=== PATIENT | female | born 1975 | race Caucasian/White ===

== ENCOUNTER 2018-03-21 07:16 | Outpatient (CLI) | payer OTHER, MEDICAID ==
[~2018-03-21] VITALS: Ht 162.6 cm; Wt 141.8 kg
--- NOTE | ~2018-03-21 | OP ---
PATIENT NAME: MING KENT MEDICAL RECORD: [id number] :71 LOCATION:D.CAT ADMISSION DATE: SURGEON: ALBIN BARAHONA MD DATE OF OPERATION: 03/21/2018 PROCEDURES: 1. PTCA stent of the left circumflex. 2. Left heart catheterization. 3. Selective coronary angiography. 4. Left ventriculogram. INDICATION: Angina and coronary artery disease. PROCEDURE IN DETAIL: After informed consent was obtained and after a detailed description of the risks, benefits as well as alternative therapies, the patient elected to proceed with angiogram and angioplasty. The right radial area was prepped and draped in normal sterile fashion. Right radial artery was cannulated via modified Seldinger technique with placement of 6-Khmer sheath. All catheters exchanged through this sheath. FINDINGS: The left ventriculogram was performed in standard 30-degree COLEMAN view, reveals good cardiac wall motion throughout all segments. Overall ejection fraction estimated 60%. SELECTIVE CORONARY ANGIOGRAPHY: 1. Left main is with no significant angiographic disease. 2. Left anterior descending has moderate irregularities, but no flow-limiting stenosis. 3. The left circumflex has 75+ percent stenosis at the ostium. 4. The right coronary artery has moderate irregularities, but no flow-limiting stenosis. PTCA STENT OF LEFT CIRCUMFLEX: The stent used was a 3.5 x 8 mm Balwinder, taken to 15 atmospheres. Result was 0% residual stenosis. OVERALL IMPRESSION: Successful percutaneous transluminal coronary angioplasty stent of the left circumflex going from 75% initial stenosis to 0% residual. TRANSINT:[id number] Voice Confirmation ID: [id number] DOCUMENT ID: [id number] ALBIN BARAHONA MD at 1713 CC: [id number] DICTATION DATE: 03/21/18 0922 MUNICIPAL SERVICES MANAGER: 03/21/18 1145 [facility] CLI 03/21/18 [place] [address]
--- NOTE | ~2018-03-21 | HEMODYNAMI ---
PATIENT:MING KENT MEDICAL RECORD: [id number] : 71 LOCATION:[facility] ADMISSION DATE: 03/21/18 Generatedon:03/21/20189:26 Patient name: MING KENT Patient #: [id number] SSN: : 1975 Date of study: 03/21/2018 Page: Of Hemodynamic Procedure Report Patient Data Patient Demographics Procedure consent was obtained First Name: MING Gender: Female Last Name: YOLI : 1975 [facility] Initial: YEIMI Age: 42 year(s) Patient #: [id number] Race: Unknown Additional ID: [id number] Contact details Address: [address] [place] [address] State: [place] City: [place] Zip code: [address] Admission Admission Data Admission Date: 03/21/2018 Admission Time: 7:16 Height (in.): 64 BSA: 2.39 (m2) Height (cm.): 162.56 BMI: 54.76 (kg/m2) Weight (lbs.): 319 Weight (kg.): 144.7 Lab Results Lab Result Date: 03/21/2018 Lab Result Time: 0:00 Biochemistry Name Units Result Min Max BUN mg/dl 10 --(-*--)-- 7 18 Creatinine mg/dl 0.8 --(-*--)-- 0.6 1.3 CBC Name Units Result Min Max Hemoglobin g/dl 13.2 -*(----)-- 13.5 17.5 Procedure Procedure Types Cath Procedure Diagnostic Procedure [facility] w/Coronaries PCI Procedure Coronary Stent Coronary Stent Initial Procedure Description Procedure Date Procedure Date: 03/21/2018 Procedure Start Time: 9:06 Procedure End Time: 9:24 Procedure Staff Name Function Efraín Torres MD Performing Physician Dennis Garcai RT Monitor Deejay Rouse RN Nurse Lance Nicole RT Scrub Procedure Data Cath Procedure Fluoroscopy Diagnostic fluoroscopy Total fluoroscopy Time: 3.4 time: 3.4 min min Diagnostic fluoroscopy Total fluoroscopy dose: dose: 1153 mGy 1153 mGy Contrast Material Contrast Material Type Amount (ml) Isovue 300 111 Entry Location Entry Primary Successful Side Size Upsize Upsize Entry Closure [place] ccessful Closure Location (Fr) 1 (Fr) 2 (Fr) Remarks Device Remarks Radial Right 6 Fr Mechanical artery Short Compression Estimated blood loss: 10 ml Diagnostic catheters Device Type Used For End Catheter Placement DIAGNOSTIC [place] 110cm 5 Procedure Fr catheter ([id number]) Procedure Complications No complications Procedure Medications Medication Administration Route Dosage 0.9% NaCl I.V. 100 ml/hr Oxygen etCO2 Nasal cannula 2 l/min Heparin Flush Bag added to field 2 bags (1000units/500ml NS) Lidocaine 2% added to field 20 Radial Cocktail added to field 1 syringe (Verapomil 2mg/Nitro 400mcg/Heparin 1500units) Versed I.V. 2 mg Fentanyl I.V. 100 mcg Radial Cocktail I.A. 1 syringe (Verapomil 2mg/Nitro 400mcg/Heparin 1500units) Versed I.V. 1 mg Versed I.V. 1 mg Heparin Bolus I.V. 4000 units Integrilin (Bolus I.V. 11.3 ml 2mg/ml) Integrilin (Bolus wasted 8.7 ml 2mg/ml) Plavix P.O. 600 mg Fentanyl I.V. 100 mcg Hemodynamics Rest BSA: 2.39 (m2) HGB: 13.2 (g/dl) O2 Consumption: Estimated: 242.75 (ml/min) O2 Co nsumption indexed: Estimated:101.57 (ml/min/m) Heart Rate: 74 (bpm) Pressure Samples Time Site Value (mmHg) Purpose Heart Use Rate(bpm) 9:10 AO 157/100(124) Snapshot 80 Snapshots Pre Cath Intra NCS Post Cath Vital Signs Time Heart Resp SPO2 etCO2 NIBP (mmHg) Rhythm Pain Sedation Rate (ipm) (%) (mmHg) Status Level (bpm) 8:48:38 68 17 98 37.7 127/69(102) NSR 0 (11) 10(A) , No pain 8:53:31 71 16 96 29.4 121/58(87) NSR 0 (11) 10(A) , No pain 8:58:22 70 17 96 38.4 125/71(100) NSR 0 (11) 10(A) , No pain 9:03:15 78 17 94 38.5 129/64(93) NSR 0 (11) 10(A) , No pain 9:08:04 77 20 97 33.1 144/88(109) NSR 0 (11) 10(A) , No pain 9:12:59 81 17 93 40 162/91(134) NSR 0 (11) 10(A) , No pain 9:19:05 75 16 96 37.7 186/106(137) NSR 0 (11) 10(A) , No pain 9:24:15 73 14 96 40.7 190/94(148) NSR 0 (11) 10(A) , No pain Medications Time Medication Route Dose Verified Delivered Reason Note s Effectiveness by by 8:50:48 0.9% NaCl I.V. 100 Deejay Deejay Per physician ml/hr Nasim Rouse RN RN 8:51:05 Oxygen etCO2 2 l/min Deejay Deejay Per physician Nasal Nasim Rouse cannula RN RN 8:51:20 Heparin Flush added 2 bags Deejay Deejay used for Bag to Lorigan Nasim procedure (1000units/500ml field RN RN NS) 8:51:32 Lidocaine 2% added 20ml Deejay Deejay for local to vial Lorigan Lorigan anesthetic RN RN 8:51:46 Radial Cocktail added 1 Deejay Deejay used for (Verapomil to syringe Lorigan Lorigan procedure 2mg/Nitro field RN RN 400mcg/Heparin 1500units) 9:05:05 Versed I.V. 2 mg Deejay Deejay for sedation Nasim Rouse RN RN 9:05:12 Fentanyl I.V. 100 mcg Deejay Deejay for sedation Nasim Rouse RN RN 9:06:40 Radial Cocktail I.A. 1 Deejay Efraín for (Verapomil syringe Nasim cali 2mg/Nitro RN 400mcg/Heparin 1500units) 9:07:17 Versed I.V. 1 mg Deejay Deejay for sedation Nasim Rouse RN RN 9:11:35 Versed I.V. 1 mg Deejay Deejay for sedation Nasim Rouse RN RN 9:12:20 Heparin Bolus I.V. 4000 Deejay Deejay for units Lorigan Lorjacquelin anticoagulation RN RN 9:14:37 Integrilin I.V. 11.3 ml Deejay Deejay for (Bolus 2mg/ml) Nasim Rouse antiplatelet RN RN therapy 9:17:13 Integrilin wasted 8.7ml Deejay Deejay to sharp's (Bolus 2mg/ml) Nasim Rouse RN RN 9:19:06 Plavix P.O. 600 mg Deejay Deejay for Lorjacquelin Rouse antiplatelet RN RN therapy 9:20:17 Fentanyl I.V. 100 mcg Deejay Deejay for sedation Nasim Rouse RN set staff fitter Log Time Note 8:27:40 Deejay Rouse RN sent for patient. Start room use. 8:27:41 Time tracking: Regular hours (M-F 7:00 - 5:00) 8:27:46 Plan of Care:Hemodynamics will remain stable., Cardiac rhythm will remain stable., Comfort level will be maintained., Respiratory function will remain adequate., Patient/ family verbilizes understanding of procedure., Procedure tolerated without complication., Recovers from procedure without complications.. 8:34:23 Patient Height : 64 inches 8:34:26 Patient Weight : 319 lbs 8:37:28 Lab Result : Hemoglobin 13.2 g/dl 8:37:28 Lab Result : Creatinine 0.8 mg/dl 8:37:28 Lab Result : BUN 10 mg/dl 8:37:40 HCG/Urine : completed and on chart, negative 8:39:23 Patient received from Pre/Post Procedure Room to CCL 1 Alert and oriented. Tansferred to table in Supine position. 8:39:25 Warm blankets applied, and magnolia hugger turned on for patient comfort. 8:39:26 Correct patient and procedure confirmed by team. 8:39:28 Signed procedure consent form obtained from patient. 8:47:27 ECG and BP/O2 sat monitors applied to patient. 8:47:31 Vital chart was started 8:50:48 0.9% NaCl 100 ml/hr I.V. was administered by Deejay Rouse RN; Per physician; 8:51:05 Oxygen 2 l/min etCO2 Nasal cannula was administered by Deejay Rouse RN; Per physician; 8:51:20 Heparin Flush Bag (1000units/500ml NS) 2 bags added to field was administered by Deejay Rouse RN; used for procedure; 8:51:32 Lidocaine 2% 20ml vial added to field was administered by Deejay Rouse RN; for local anesthetic; 8:51:46 Radial Cocktail (Verapomil 2mg/Nitro 400mcg/Heparin 1500units) 1 syringe added to field was administered by Deejay Rouse RN; used for procedure; 8:59:41 Baseline sample Acquired. 8:59:46 Rhythm: sinus rhythm 8:59:48 Full Disclosure recording started 8:59:58 H&P Date Dictated: 03/17/2018 Within 30 days and on chart., H&P Addendum completed by physician on day of procedure. (MUST COMPLETE FOR ALL OUTPATIENTS). 8:59:59 Pre-procedure instructions explained to patient. 9:00:01 Pre-op teaching completed and patient verbalized understanding. 9:00:23 Family in patients room. 9:02:00 Patient NPO since Midnight. 9:02:04 Is the patient allergic to Iodine/contrast media? No. 9:02:08 Is patient on blood thinner?No 9:02:13 Patient diabetic? No. 9:02:16 Previous problem with sedation/anesthesia? No ? 9:02:20 Snore? Yes 9:02:21 Sleep apnea? No 9:02:22 Deviated septum? No 9:02:23 Opens mouth fully? Yes 9:02:24 Sticks out tongue? Yes 9:02:35 Airway obstruction? Yes Asthma 9:02:46 Dentures? No ? 9:02:49 Pre procedure: right dorsailis pedis pulse 1+ Palpable, but thready & weak; easily obliterated 9:02:51 Modified Rudolph's test Ulnar < 7 seconds 9:02:54 Patient pain scale 0/10 ?. 9:03:00 IV patent on arrival in left forearm with 0.9% NaCl at KVO. 9:03:03 Lab results completed and on chart. 9:03:16 Right Radial & Right Groin area was prepped with chlora-prep and draped in sterile fashion 9:03:27 Alarms reviewed by REd N. 9:03:27 Sharps counted by scrub and verified by R.N. 9:04:05 --------ALL STOP TIME OUT------ 9:04:05 Final Timeout: patient, procedure, and site verified with staff and physician. All members of the team are in agreement. 9:04:07 Right Radial & Right Groin site verified by team. 9:04:10 Physical assessment completed. ASA score P 2 - A patient with mild systemic disease as per Efraín Torres MD. 9:04:14 Sedation plan: IV Moderate Sedation Medication:Versed, Fentanyl 9:05:05 Versed 2 mg I.V. was administered by Deejay Rouse RN; for sedation; 9:05:12 Fentanyl 100 mcg I.V. was administered by Deejay Rouse RN; for sedation; 9:06:24 Use device set Radial Dx or PCI 9:06:26 Tegaderm 4 x 4 (1626W) opened to sterile field. 9:06:27 ACIST Manifold (21958) opened to sterile field. 9:06:28 ACIST Hand Control (72884) opened to sterile field. 9:06:29 ACIST Syringe (06509) opened to sterile field. 9:06:29 Medline Cath Pack ([id number]) opened to sterile field. 9:06:29 Bag Decanter (2002S) opened to sterile field. 9:06:30 DIAGNOSTIC WIRE .035 260cm J wire (047233) opened to sterile field. 9:06:30 MBrace Wrist Support (431382952) opened to sterile field. 9:06:31 SHEATH 6Fr Prelude Radial ([id number]) opened to sterile field. 9:06:33 Procedure started. 9:06:40 Radial Cocktail (Verapomil 2mg/Nitro 400mcg/Heparin 1500units) 1 syringe I.A. was administered by Efraín Torres MD; for vasodilation; 9:06:40 Local anesthetic to right femoral artery with Lidocaine 2% by Efraín Torres MD.INITIAL ACCESS ONLY 9:07:04 A 6 Fr Short sheath was inserted into the Right Radial artery 9:07:17 Versed 1 mg I.V. was administered by Deejay Rouse RN; for sedation; 9:07:49 A DIAGNOSTIC [place] 110cm 5 Fr catheter (500066) was advanced over the wire and used for Procedure. 9:08:30 GLIDE WIRE ANGLE 260cm (DL4147) opened to sterile field. 9:09:19 Glidewire used to advance catheter. 9:09:52 LV angiography performed. 9:09:55 LV gram done using COLEMAN 9:10:01 EF : 60 % 9::23 Injector settings: Ml/sec: 7, Volume: 15, 9:10:27 RCA angiography performed. 9:11:15 LCA angiography performed. 9:11:35 Versed 1 mg I.V. was administered by Deejay Rouse RN; for sedation; 9:12:16 Catheter exchanged over wire. 9:12:20 Heparin Bolus 4000 units I.V. was administered by Deejay Rouse RN; for anticoagulation; 9:12:22 Use device set [facility] PCI 9:12:30 INFLATOR Merit BasixCompak (IL3703) opened to sterile field. 9:12:34 CHOICE PT Extra Support 182cm wire ([id number]) opened to sterile field. 9:14:37 Integrilin (Bolus 2mg/ml) 11.3 ml I.V. was administered by Deejay Rouse RN; for antiplatelet therapy; 9:15:06 No Charge 6fr XBC guide catheter opened to the field. 9:15:14 6 Fr XBC guide catheter was inserted over the wire 9:15:20 Choice PT XS wire advanced. 9:15:55 Wire advanced across lesion. 9:16:49 Place stent Inflation Number: 1 A ENMA RX 3.5 x 08 stent ([id number]) was prepped and advanced across the Prox CX. The stent was deployed at 15 DARCY for 0:10 (min:sec). 9:17:08 TR BAND Large ([id number]) opened to sterile field. 9:17:13 Integrilin (Bolus 2mg/ml) 8.7ml wasted was administered by Deejay Rouse RN; to sharp's; 9:17:16 Stent catheter was removed intact over wire. 9:17:17 Wire removed. 9:17:18 Guide catheter removed. 9:17:33 Sheath removed intact; hemostasis achieved with Mechanical Compression to the Right Radial artery. 9:17:36 Procedure ended.(Physican Out) 9:19:06 Plavix 600 mg P.O. was administered by Deejay Rouse RN; for antiplatelet therapy; 9:20:17 Fentanyl 100 mcg I.V. was administered by Deejay Rouse RN; for sedation; 9:21:14 Fluoroscopy time 03.40 minutes. 9:21:18 Fluoroscopy dose: 1153 mGy 9:21:18 Flurop Dose total: 1153 9:21:22 Contrast amount:Isovue 300 111ml. 9:21:24 Sharps counted by scrub and verified by R.N. 9:21:26 TR band inflated with 14cc of air. 9:21:28 Insertion/operative site no bleeding no hematoma. 9:21:30 Post Procedure Pulses reassessed and unchanged 9:21:36 Post-procedure physical assessment completed. ASA score P 2 - A patient with mild systemic disease as per Efraín Torres MD. 9:21:38 Post procedure rhythm: unchanged. 9:21:41 Estimated blood loss: 10 ml 9:21:43 Post procedure instruction explained to patient.Patient verbalizes understanding. 9:21:44 Patient needs reinforcement of post procedure teaching. 9:21:52 Procedure type changed to Cath procedure, Diagnostic procedure, LHC, LHC w/Coronaries, PCI procedure, Coronary Stent, Coronary Stent Initial 9:21:54 Procedure and supply charges have been captured, reviewed, submitted and are correct. 9:21:56 Procedure Complication : No complications 9:23:54 Vital chart was stopped 9:23:55 See physician's report for complete and final results. 9:23:57 Report given to Pre/Post Procedure Room. 9:24:01 Patient transfered to Pre/Post Procedure Room with Stretcher. 9:24:03 Procedure ended. 9:24:03 Full Disclosure recording stopped 9:24:16 End room use (Document Last) Intervention Summary Intervention Notes Time ActionType Lesion and Equipment Used Action# Pressure Duration Attributes 9:16:49 Place stent Prox CX ENMA RX 3.5 x 1 15 00:10 08 stent ([id number]) Device Usage Item Name Manufacture Quantity Catalog Number Hospital Part Current Minimal Lot# / Charge Number Stock Stock Serial# Code Tegaderm 4 x 4 3M 1 [id number] 025150 671300 111385 5 (1626W) ACIST Manifold Acist 1 54377 264736 773751 814739 5 (44654) Medical Systems Inc ACIST Hand Acist 1 91124 996690 263609 181954 5 Control (25804) Medical Systems Biosport Athletechs ACIST Syringe Acist 1 83476 139123 982014 756274 20 (25502) Medical Systems Inc Medline Cath Cardinal 1 [id number] 589403 30244 890945 5 [facility] (DVWI76309) Bag Decanter Microtek 1 2001S 836250 56621 974101 5 (2001S) Medical Inc. DIAGNOSTIC WIRE [place] 1 122529 723068 213739 260578 30 .035 260cm J wire (209676) MBrace Wrist Advanced 1 140-0250-00 247233 34702 056013 5 Support Vascular ([id number]) Dynamics DIAGNOSTIC Terumo 1 40-5013 134091 713218 562289 5 [place] 110cm 5 Fr catheter (394819) SHEATH 6Fr Merit 1 [id number] 094915 480877 757250 5 Prelude Radial Medical ([id number]) GLIDE WIRE Terumo 1 WZ9646 091661 413732 019480 5 ANGLE 260cm (UI4107) INFLATOR Merit Merit 1 OY1496 607805 592407 497433 15 [facility]St[facility] Hospital[facility] (XB3739) CHOICE PT Extra [place] 1 [id number] 870490 173105 420718 5 Support 182cm Scientific wire ([id number]) ENMA RX 3.5 x Medtronic 1 [id number] 995413 0096513 410200 5 [id number] 08 stent ([id number]) TR BAND Large Terumo 1 [id number] 418964 085191 838925 40 ([id number]) Signature Audit Devon Stage Time Signature Unsigned Intra-Procedure 03/21/2018 Dennis Garcia 9:26:19 AM RT(R) Signatures Monitor : Dennis Garcia RT Signature : Date : Time : [facility] [address] [place] [address]
[2018-03-21] MEDS ORDERED: LEXAPRO20 MG PO (07:36)
[2018-03-21] MEDS ORDERED: HCTZ25 MG PO (07:37)
[2018-03-21] MEDS ORDERED: ULTRAM50 MG PO (07:38)
[2018-03-21] MEDS ORDERED: TRAZODONE HCL150 MG PO (07:39)
[2018-03-21] MEDS ORDERED: LISINOPRIL5 MG PO (07:39)
[2018-03-21] MEDS ORDERED: XANAX1 MG PO (07:40)
[2018-03-21] MEDS ORDERED: IPRAT-ALBUT 0.5-3 ML UPD (07:40)
[2018-03-21] MEDS ORDERED: LIPITOR10 MG PO (07:40)
[2018-03-21] MEDS ORDERED: PROAIR HFA8.5 GM INH (07:41)
[2018-03-21] MEDS ORDERED: BREO ELLIPTA 21 EACH (07:41)
[2018-03-21 08:04] VITALS: BP 119/53; Ht 162.6 cm; Wt 141.8 kg
[2018-03-21 08:11] LABS: BASOPHILS 0.3 % (0-2); EOSINOPHILS 2.5 % (0-7); HEMATOCRIT 39.2 % (36.0-48.0); HEMOGLOBIN 13.2 g/dL (12-16); IMMATURE GRANULOCYTES 0.3 % (0-5); LYMPHOCYTES 22.8 % (15-50); MCH 30.2 pg (26.0-34.0); MCHC 33.7 g/dL (31.0-37.0); MCV 89.7 fL (80.0-100.0); MEAN PLATELET VOLUME 9.8 fL (7.4-10.4); MONOCYTES 4.8 % (2-11); NEUTROPHILS 69.3 % (40-80); PLATELET COUNT 254 10x3/uL (130-400); RBC 4.37 10x6/uL (4.00-5.40); RDW 13.5 % (11.5-14.5); WBC 9.8 10x3/uL (4.8-10.8)
[2018-03-21 08:19] LABS: CALC OSMOLALITY 272 mosm/kg (275-300); CALCIUM 8.6 mg/dL (8.5-10.1); CARBON DIOXIDE 28.1 mmol/L (21.0-32.0); CHLORIDE - SERUM 100 mmol/L (98-107); CREATININE - SERUM 0.8 mg/dL (0.6-1.3); GLUCOSE 132 mg/dL (74-106); POTASSIUM - SERUM 3.9 mmol/L (3.5-5.1); SODIUM 136 mmol/L (136-145); UREA NITROGEN 10 mg/dL (7-18); eGFR NON AFRICAN AMERICAN 82 mL/min (90-120)
[2018-03-21 08:31] LABS: HCG SERUM NEGATIVE (NEGATIVE)
[2018-03-21] MEDS ORDERED: BAYER CHEWABLE81 MG (09:45)
[2018-03-21] MEDS ORDERED: PLAVIX75 MG PO (09:45)
== END 2018-03-21 13:30 | disposition home or self-care (01) ==
LOC: D.CATH 07:16
PROVIDERS: Internal Medicine Interventional Cardiology
DX: I25.119 Atherosclerotic heart disease of native coronary artery with unspecified angina pectoris (principal)

== ENCOUNTER → 2018-10-06 11:18 | Outpatient (CLI) | payer OTHER, MEDICAID ==
[2018-03-21 08:04] VITALS: BMI 53.7
[~2018-10-06 11:18] MED LIST: BACLOFEN10 MG PO; BAYER CHEWABLE81 MG; BREO ELLIPTA 21 EACH; HCTZ25 MG PO; IPRAT-ALBUT 0.5-3 ML UPD; LEXAPRO20 MG PO; LIPITOR10 MG PO; LISINOPRIL5 MG PO; PLAVIX75 MG PO; PROAIR HFA8.5 GM INH; TRAZODONE HCL150 MG PO; ULTRAM50 MG PO; XANAX1 MG PO
--- NOTE | 2018-10-11 11:18 | ST ---
PATIENT:MING KENT MEDICAL RECORD: [id number] SEX: F LOCATION:[facility] ORDER #: ADMISSION DATE: 10/06/18 AGE OF PATIENT: 42 REFERRING PHYSICIAN: INTERPRETING PHYSICIAN: ALBIN BARAHONA MD DATE OF SERVICE: 10/06/2018 PROCEDURE: Nuclear stress test. INDICATION: Angina, coronary artery disease, shortness of breath. He was exercised on standard Lexiscan protocol with 32 mCi of sestamibi injected at peak stress. A 11 mCi were used previously for rest images. FINDINGS: Gated SPECT reveals a preserved ejection fraction at 67% with decreased thickening and brightening throughout the inferior segments. SPECT imaging Cardiolite was used as myocardial perfusion agent. There is a mixed perfusion defect inferiorly. This includes basal, mid apical inferior segments as well as the apex itself. There is reversibility throughout the entire defect. The remaining segments are with homogeneous uptake at rest and stress. OVERALL IMPRESSION: This is an abnormal nuclear stress test, reversible changes as well as fixed perfusion defect inferiorly and apically with preserved ejection fraction at 67%. This does suggest a recurrence of hemodynamically significant coronary artery disease. We will proceed with coronary angiography as followup study. TRANSINT:[id number] Voice Confirmation ID: [id number] DOCUMENT ID: [id number] ALBIN BARAHONA MD at 1118 CC: [id number] DICTATION DATE: 10/07/18 1424 LOG BUYER: 10/07/18 2359 [facility] CLI 10/06/18 [place] [id number]
== END | disposition home or self-care (01) ==
LOC: D.HCCARDIO 08-25 11:00
DX: I25.119 Atherosclerotic heart disease of native coronary artery with unspecified angina pectoris (principal)

== ENCOUNTER 2018-10-14 07:55 | Outpatient (CLI) | payer OTHER, MEDICAID ==
[~2018-10-14] VITALS: Ht 162.6 cm; Wt 109.1 kg
--- NOTE | ~2018-10-14 | OP ---
PATIENT NAME: MING KENT MEDICAL RECORD: [id number] :71 LOCATION:D.CAT ADMISSION DATE: SURGEON: ALBIN BARAHONA MD DATE OF OPERATION: 10/14/2018 DATE OF SERVICE: 10/14/2018 PROCEDURES: 1. PTCA stent LAD diagonal. 2. Intravascular ultrasound. 3. Left heart catheterization. 4. Selective coronary angiography. 5. Left ventriculogram. INDICATION: Angina and coronary artery disease. PROCEDURE IN DETAIL: After informed consent was obtained and after detailed description of risks, benefits as well as alternative therapies, the patient elected to proceed with angiogram and angioplasty. The right femoral area was prepped and draped in normal sterile fashion. Right femoral artery was cannulated via modified Seldinger technique with placement of 6-Icelandic sheath. All catheters exchanged through this sheath. FINDINGS: The left ventriculogram was performed in standard 30-degree COLEMAN view, reveals good cardiac wall motion throughout all segments. Overall ejection fraction estimated at 60%. SELECTIVE CORONARY ANGIOGRAPHY: 1. Left main is with no significant angiographic disease. 2. Left anterior descending has mild irregularities, no stenosis greater than 40% confirmed by intravascular ultrasound; however, there is relatively large diagonal system. There is 90% stenosis at the ostium. 3. Left circumflex has a previously placed stent. This is widely patent with no significant restenosis. No disease elsewise. 4. Right coronary has moderate irregularities, but no flow-limiting stenosis. PTCA STENT OF THE LAD DIAGONAL: Stents used were 2.5 x 8 and 2.25 x 8, both Integrity stents. Result was 0% residual stenosis. OVERALL IMPRESSION: Successful percutaneous transluminal coronary angioplasty stent of the left anterior descending diagonal going from 90% initial stenosis to 0% residual. TRANSINT:[id number] Voice Confirmation ID: [id number] DOCUMENT ID: [id number] ALBIN BARAHONA MD CC: [id number] DICTATION DATE: 10/14/18 1047 WEIGHT CLERK: 10/14/18 1103 [place] [address] [place] [address]
--- NOTE | ~2018-10-14 | HEMODYNAMI ---
PATIENT:MING KENT MEDICAL RECORD: [id number] : 71 LOCATION:[facility] ADMISSION DATE: 10/14/18 Generatedon:10/14/201810:37 Patient name: MING KENT Patient #: [id number] SSN: : 1975 Date of study: 10/14/2018 Page: Of Hemodynamic Procedure Report Patient Data Patient Demographics Procedure consent was obtained First Name: MING Gender: Female Last Name: YOLI : 1975 [facility] Initial: YEIMI Age: 42 year(s) Patient #: [id number] Race: Unknown Additional ID: [id number] Contact details [address]: [address] [place] [address] State: [place] City: [place] Zip code: [address] Past Medical History Allergies Allergen Reaction Date Comments Reported Penicillins 10/14/2018 Sulfa drugs 10/14/2018 Admission Admission Data Admission Date: 10/14/2018 Admission Time: 7:55 Admit Source: Other Procedure Procedure Types Cath Procedure Diagnostic Procedure LHC LH w/Coronaries FFR/IVUS Intra-Coronary IVUS Initial PCI Procedure Coronary Stent Coronary Stent Initial Procedure Description Procedure Date Procedure Date: 10/14/2018 Procedure Start Time: 10:02 Procedure End Time: 10:30 Procedure Staff Name Function Efraín Torres MD Performing Physician Loren Scott RT Scrub Theresa Kent RT Scrub Manas Yanez RN Wash Oil Cooler Operator Jung Sandoval RT Monitor Procedure Data Cath Procedure Fluoroscopy Diagnostic fluoroscopy Total fluoroscopy Time: 7 time: 7 min min Diagnostic fluoroscopy Total fluoroscopy dose: dose: 1460 mGy 1460 mGy Contrast Material Contrast Material Type Amount (ml) Isovue 300 122 Entry Location Entry Primary Successful Side Size Upsize Upsize Entry Closure [place] ccessful Closure Location (Fr) 1 (Fr) 2 (Fr) Remarks Device Remarks Radial Right 6 Fr Mechanical artery Short Compression Femoral Right 5 Fr Exoseal artery Diagnostic catheters Device Type Used For End Catheter Placement DIAGNOSTIC [place] 110cm 5 Left Coronary Fr catheter ([id number]) Angiography MULTIPACK Pigtail 5 Fr LV Angiography catheter MULTIPACK JL 4.0 5Fr Left Coronary catheter Angiography MULTIPACK 3DRC 5Fr Right Coronary catheter Angiography Procedure Complications No complications Procedure Medications Medication Administration Route Dosage Oxygen etCO2 Nasal cannula 2 l/min Lidocaine 2% added to field 20 Heparin Flush Bag added to field 2 bags (1000units/500ml NS) 0.9% NaCl I.V. 100 ml/hr Radial Cocktail I.A. 1 syringe (Verapomil 2mg/Nitro 400mcg/Heparin 1500units) Versed I.V. 2 mg Fentanyl I.V. 100 mcg Versed I.V. 2 mg Fentanyl I.V. 100 mcg Versed I.V. 2 mg Fentanyl I.V. 100 mcg Fentanyl I.V. 50 mcg Heparin Bolus I.V. 4000 units Fentanyl I.V. 50 mcg Hemodynamics Rest Heart Rate: 80 (bpm) Snapshots Pre Cath Intra NCS Post Cath Vital Signs Time Heart Resp SPO2 etCO2 NIBP (mmHg) Rhythm Pain Sedation Rate (ipm) (%) (mmHg) Status Level (bpm) 9:25:45 82 16 95 33.8 155/80(100) NSR 0 (11) 10(A) , No pain 9:30:24 75 20 97 36.8 149/80(118) NSR 0 (11) 10(A) , No pain 9:35:06 78 26 95 32.3 152/74(109) NSR 0 (11) 10(A) , No pain 9:39:59 76 18 95 36.8 134/42(78) NSR 0 (11) 10(A) , No pain 9:44:34 78 18 94 31.5 144/81(111) NSR 0 (11) 10(A) , No pain 9:49:12 76 16 93 43.5 138/81(113) NSR 0 (11) 10(A) , No pain 9:53:49 77 18 95 44.3 146/78(117) NSR 0 (11) 10(A) , No pain 9:59:49 77 15 94 33.8 142/80(108) NSR 0 (11) 10(A) , No pain 10:04:26 84 17 92 35.3 152/86(109) NSR 0 (11) 10(A) , No pain 10:09:04 82 13 92 38.3 168/92(126) NSR 0 (11) 10(A) , No pain 10:13:53 81 15 94 173/91(123) NSR 0 (11) 10(A) , No pain 10:25:05 80 15 92 187/96(137) NSR 0 (11) 10(A) , No pain 10:29:56 79 17 92 183/97(134) NSR 0 (11) 10(A) , No pain Medications Time Medication Route Dose Verified Delivered Reason Not es Effectiveness by by 9:41:49 Oxygen etCO2 2 l/min Efraín Buffie used for Nasal Melissa Yanez RN procedure cannula 9:42:29 Lidocaine 2% added 20ml Efraín Kenny for local to vial Melissa Torres MD anesthetic field 9:42:37 Heparin Flush added 2 bags Efraín Kenny for local Bag to Melissa Torres MD anesthetic (1000units/500ml field NS) 9:43:23 0.9% NaCl I.V. 100 Efraín Buffglenroy Per physician ml/hr Melissa Yanez RN 9:43:37 Radial Cocktail I.A. 1 Efraín Kenny for (Verapomil syringe Melissa Torres MD vasodilation 2mg/Nitro 400mcg/Heparin 1500units) 9:56:07 Versed I.V. 2 mg Efraín Buffie for sedation Melissa Yanez RN 9:56:14 Fentanyl I.V. 100 mcg Efraín Buffie for sedation Melissa Yanez RN 10:01:15 Versed I.V. 2 mg Efraín Buffie for sedation Melissa Yanez RN 10:01:18 Fentanyl I.V. 100 mcg Efraín Buffie for sedation Melissa Yanez RN 10:10:45 Versed I.V. 2 mg Efraín Buffie for sedation Melissa Yanez RN 10:10:48 Fentanyl I.V. 100 mcg Efraín Buffie for sedation Melissa Yanez RN 10:18:19 Fentanyl I.V. 50 mcg Efraín Buffie for sedation Melissa Yanez RN 10:20:57 Heparin Bolus I.V. 4000 Efraín Buffie for jena ified units Melissa Yanez RN anticoagulation with dr torres 10:31:10 Fentanyl I.V. 50 mcg Efraín Buffie for sedation Tauth MD Yanez evaporator repairer Log Time Note 9:00:07 Loren Scott RT(R) sent for patient. Start room use. 9:13:46 Informed consent obtained and on chart 9:14:16 Admit Source: Other 9:14:53 Diagnostic Cath status Elective 9:14:54 Time tracking: Regular hours (M-F 7:00 - 5:00) 9:14:59 Time tracking: Regular hours (M-F 7:00 - 5:00) 9:15:01 Plan of Care:Hemodynamics will remain stable., Cardiac rhythm will remain stable., Comfort level will be maintained., Respiratory function will remain adequate., Patient/ family verbilizes understanding of procedure., Procedure tolerated without complication., Recovers from procedure without complications.. 9:24:05 Patient received from Pre/Post Procedure Room to CCL 1 Alert and oriented. Tansferred to table in Supine position. 9:24:06 Warm blankets applied, and magnolia hugger turned on for patient comfort. 9:24:06 Correct patient and procedure confirmed by team. 9:24:07 ECG and BP/O2 sat monitors applied to patient. 9:24:07 Vital chart was started 9:24:08 Baseline sample Acquired. 9:24:24 Baseline sample Acquired. 9:24:30 Rhythm: sinus rhythm 9:24:31 Full Disclosure recording started 9:24:41 H&P Date Dictated: 10/14/2018 Within 30 days and on chart.. 9:24:41 Pre-procedure instructions explained to patient. 9:24:42 Pre-op teaching completed and patient verbalized understanding. 9:24:44 Family in waiting room. 9:24:45 Patient NPO since Midnight. 9:24:51 Patient allergic to Penicillins 9:24:56 Patient allergic to Sulfa drugs 9:25:03 Is the patient allergic to Iodine/contrast media? No. 9:25:07 Is patient on blood thinner?Yes 9:25:11 ACC The patient was administered the following blood thiners within the last 24 hours: ACCPlavix 9:25:17 loaded 9:25:20 Patient diabetic? No. 9:25:21 ----Pre-sedation anethsthesia assessment.---- 9:25:24 Previous problem with sedation/anesthesia? No ? 9:25:25 Snore? Yes 9:25:27 Sleep apnea? Yes 9:25:32 Deviated septum? No 9:25:37 Opens mouth fully? Yes 9:25:39 Sticks out tongue? Yes 9:25:43 Airway obstruction? No ? 9:26:04 Dentures? No ? 9:26:07 Pre procedure: right dorsailis pedis pulse 1+ Palpable, but thready & weak; easily obliterated 9:26:10 Modified Rudolph's test Ulnar < 7 seconds 9:26:13 Patient pain scale 0/10 ?. 9:26:17 IV patent on arrival in left antecubital with 0.9% NaCl at 10ml/hr. 9:26:29 Lab results completed and on chart. 9:26:32 Right Radial & Right Groin area was prepped with chlora-prep and draped in sterile fashion 9::33 Alarms reviewed by R. N. 9::33 Sharps counted by scrub and verified by R.N. 9:41:49 Oxygen 2 l/min etCO2 Nasal cannula was administered by Manas Yanez RN; used for procedure; 9:42:29 Lidocaine 2% 20ml vial added to field was administered by Efraín Torres MD; for local anesthetic; 9:42:37 Heparin Flush Bag (1000units/500ml NS) 2 bags added to field was administered by Efraín Torres MD; for local anesthetic; 9:43:23 0.9% NaCl 100 ml/hr I.V. was administered by Manas Yanez RN; Per physician; 9:43:37 Radial Cocktail (Verapomil 2mg/Nitro 400mcg/Heparin 1500units) 1 syringe I.A. was administered by Efraín Torres MD; for vasodilation; 9:48:52 Zero performed for pressure channel P1 9:48:58 Use device set Radial Dx or PCI 9:49:00 ACIST Syringe (24351) opened to sterile field. 9:49:00 Medline Cath Pack ([id number]) opened to sterile field. 9:49:01 Bag Decanter (2002) opened to sterile field. 9:49:01 DIAGNOSTIC WIRE .035 260cm J wire (198725) opened to sterile field. 9:49:01 ACIST Hand Control (36318) opened to sterile field. 9:49:02 ACIST Manifold (20130) opened to sterile field. 9:49:02 Tegaderm 4 x 4 (1626W) opened to sterile field. 9:49:03 MBrace Wrist Support ([id number]) opened to sterile field. 9:49:03 NEEDLE Cook 21G 4cm Radial (U94557) opened to sterile field. 9:49:05 SHEATH 6FR Slender (34-7042) opened to sterile field. 9:55:27 Physician arrived :: --------ALL STOP TIME OUT------ :55:28 Final Timeout: patient, procedure, and site verified with staff and physician. All members of the team are in agreement. 9:55:30 Right Radial & Right Groin site verified by team. 9:55:34 Fire Safety Assessment: A--An alcohol-based skin anteseptic being used preoperatively., C--Open oxygen or nitrous oxide is being used., D--An ESU, laser, or fiber-optic light is being used. 9:55:38 Physical assessment completed. ASA score P 2 - A patient with mild systemic disease as per Efraín Torres MD. 9:55:42 Sedation plan: IV Moderate Sedation Medication:Versed, Fentanyl 9:56:07 Versed 2 mg I.V. was administered by Manas Yanez RN; for sedation; 9:56:14 Fentanyl 100 mcg I.V. was administered by Manas Yanez RN; for sedation; 9:59:08 Baseline sample Acquired. 9:59:23 Baseline sample Acquired. 9:59:34 Baseline sample Acquired. 10:01:10 Procedure started. 10:01:15 Versed 2 mg I.V. was administered by Manas Yanez RN; for sedation; 10:01:18 Fentanyl 100 mcg I.V. was administered by Manas Yanez RN; for sedation; 10:02:21 Local anesthetic to right radial artery with Lidocaine 2% by Efraín Torres MD.INITIAL ACCESS ONLY 10:02:30 A 6 Fr Short sheath was inserted into the Right Radial artery 10:03:47 A DIAGNOSTIC [place] 110cm 5 Fr catheter ([id number]) was advanced over the wire and used for Left Coronary Angiography. 10:04:30 GLIDE WIRE Super Stiff Angled 260cm (ZU8427) opened to sterile field. 10:07:06 Baseline sample Acquired. 10:07:18 Catheter removed. 10:07:57 Local anesthetic to right femoral artery with Lidocaine 2% by Efraín Torres MD.ADDITIONAL ACCESS 10:08:07 A 5 Fr sheath was inserted into the Right Femoral artery 10:08:32 Use device set Multipack Set 10:08:34 DIAGNOSTIC Multipack 5Fr catheter set (IQ1093) opened to sterile field. 10:09:44 CHOICE PT Extra Support 182cm wire ([id number]) opened to sterile field. 10:10:45 Versed 2 mg I.V. was administered by Manas Yanez RN; for sedation; 10:10:48 Fentanyl 100 mcg I.V. was administered by Manas Yanez RN; for sedation; 10:11:11 A MULTIPACK Pigtail 5 Fr catheter was advanced over the wire and used for LV Angiography. 10:11:34 LV angiography performed. 10:11:36 LV gram done using COLEMAN 10:12:13 EF : 55 % 10:12:18 Catheter removed. 10:12:32 A MULTIPACK JL 4.0 5Fr catheter was advanced over the wire and used for Left Coronary Angiography. 10:12:46 LCA angiography performed. 10:13:43 Catheter removed. 10:13:58 INFLATOR Merit BasixCompak (LO2029) opened to sterile field. 10:14:09 A MULTIPACK 3DRC 5Fr catheter was advanced over the wire and used for Right Coronary Angiography. 10:14:13 RCA angiography performed. 10:16:03 Catheter removed. 10:17:37 SHEATH 6FR [place] (HEY227) opened to sterile field. 10:17:44 Clay [place] IVUS Catheter (36321R) opened to sterile field. 10:17:53 6 Fr xblad 3.5 guide catheter was inserted over the wire 10:18:03 GUIDE 6FR XBLAD 3.5 catheter ([id number]) opened to sterile field. 10:18:10 cptes wire advanced. 10:18:13 FFR/IVUS 10:18:13 IVUS catheter advanced over wire. 10:18:19 Fentanyl 50 mcg I.V. was administered by Manas Yanez RN; for sedation; 10:18:48 IVUS pass to LAD lesion performed. 10:20:50 IVUS catheter removed over wire. 10:20:57 Heparin Bolus 4000 units I.V. was administered by Manas Yanez RN; for anticoagulation; verified with dr torres 10:21:28 Wire removed. 10:21:36 cptes wire advanced. 10:21:43 diag 10:23:38 Place stent Inflation Number: 1 A INTEGRITY RX 2.25 x 08 stent ([id number]) was prepped and advanced across the 1st Diag. The stent was deployed at 11 DARCY for 0:06 (min:sec). 10:25:06 Inflation number: 2 The stent balloon was then re-inflated across the 1st Diag to 13 DARCY for 0:22 (min:sec). 10:25:10 Stent catheter was removed intact over wire. 10:27:00 Place stent Inflation Number: 3 A INTEGRITY RX 2.5 x 08 stent ([id number]) was prepped and advanced across the 1st Diag. The stent was deployed at 13 DARCY for 0:10 (min:sec). 10:27:33 Stent catheter was removed intact over wire. 10:27:34 Wire removed. 10:27:34 Guide catheter removed. 10:27:39 TR BAND Large ([id number]) opened to sterile field. 10:28:38 EXOSEAL 6Fr (EX600) opened to sterile field. 10:28:53 Sheath removed intact; hemostasis achieved with Mechanical Compression to the Right Radial artery. 10:28:58 Sheath removed intact; hemostasis achieved with Exoseal to the Right Femoral artery. 10:29:04 Procedure ended.(Physican Out) 10:29:14 Fluoroscopy time 07.00 minutes. 10:29:19 Fluoroscopy dose: 1460 mGy 10:29:19 Flurop Dose total: 1460 10:29:30 Contrast amount:Isovue 300 122ml. 10:29:32 Sharps counted by scrub and verified by R.N. 10:29:33 Insertion/operative site no bleeding no hematoma. 10:29:35 Post-op/insertion site Right Femoral artery dressed using a 4 x 4 and Tegaderm. 10:29:39 Post right femoral artery:stable 10:29:44 Post right radial artery:stable 10:29:45 Post Procedure Pulses reassessed and unchanged 10:29:50 Post procedure rhythm: sinus rhythm 10:29:51 Post procedure instruction explained to patient.Patient verbalizes understanding. 10:29:52 Procedure and supply charges have been captured, reviewed, submitted and are correct. 10:29:56 Procedure Complication : No complications 10:29:58 Vital chart was stopped 10:29:59 See physician's report for complete and final results. 10:30:01 Report given to Pre/Post Procedure Room. 10:30:05 Patient transfered to Pre/Post Procedure Room with Stretcher. 10:30:07 Procedure ended. 10:30:07 Full Disclosure recording stopped 10:30:12 End room use (Document Last) 10:31:10 Fentanyl 50 mcg I.V. was administered by Manas Yanez RN; for sedation; 10:31:21 Procedure type changed to Cath procedure, Diagnostic procedure, LHC, LHC w/Coronaries, FFR/IVUS, Intra-Coronary IVUS Initial, PCI procedure, Coronary Stent, Coronary Stent Initial Intervention Summary Intervention Notes Time ActionType Lesion and Equipment Action# Pressure Duration Attributes Used 10:23:38 Place stent 1st Diag INTEGRITY RX 1 11 00:06 2.25 x 08 stent ([id number]) 10:25:06 Reinflate 1st Diag INTEGRITY RX 2 13 00:22 stent 2.25 x 08 balloon stent ([id number]) 10:27:00 Place stent 1st Diag INTEGRITY RX 3 13 00:10 2.5 x 08 stent ([id number]) Device Usage Item Name Manufacture Quantity Catalog Number Hospital Part Current [facility] Lot# / Charge Number Stock Stock Serial# Code ACIST Acist 1 28804 905041 398753 910988 20 Syringe Medical (20297) Systems Inc Medline Cath Medline 1 [id number] 895787 62084 209799 5 Pack ([id number]) Bag Decanter Microtek 1 595897 04835 295584 5 () Medical Inc. DIAGNOSTIC [place] 1 899825 435053 322778 683808 30 WIRE .035 260cm J wire (122684) ACIST Hand Acist 1 05658 879773 614601 780662 5 Control Medical (27691) Systems Inc ACIST Acist 1 56356 769061 791167 780990 5 Manifold Medical (10060) Systems Inc Tegaderm 4 x 3M 1 1626W 650707 411522 845012 5 4 (1626W) MBrace Wrist Advanced 1 140-0250-00 383535 88572 168336 5 Support Vascular (965282445) Dynamics NEEDLE Cook [place] Medical 1 O84398 214113 590250 482260 5 21G 4cm Radial (R78343) SHEATH 6FR Terumo 1 [id number] 630265 524823 784969 5 Slender (80-1060) DIAGNOSTIC Terumo 1 40-5013 491781 862897 958780 5 [place] 110cm 5 Fr catheter (544650) GLIDE WIRE Terumo 1 SX3470 962815 999690 065387 5 Super Stiff Angled 260cm (ZF1075) DIAGNOSTIC Cardinal 1 ZV5797 352832 29917 381583 30 Multipack Health 5Fr catheter set (YB6791) CHOICE PT Nunda 1 [id number] 877166 371682 687075 5 Extra Scientific Support 182cm wire (2651214A8) MULTIPACK Cardinal 1 324259 5 Pigtail 5 Fr Health catheter MULTIPACK JL Cardinal 1 854508 5 4.0 5Fr Health catheter INFLATOR Merit 1 DQ6887 191749 533930 544032 15 Comfort Line Medical BasixCompak (IL5820) MULTIPACK Cardinal 1 165955 5 3DRC 5Fr Health catheter SHEATH 6FR Terumo 1 LGK082 531677 505503 625991 40 [place] (TQV807) Clay Clay 1 47730R 064540 583925 372397 8 [place] IVUS Catheter (20296D) GUIDE 6FR Cardinal 1 [id number] 714371 511517 639434 10 XBLAD 3.5 Health catheter (67271470) INTEGRITY RX Medtronic 1 [id number] 555649 659079 357632 5 [id number] 2.25 x 08 stent ([id number]) INTEGRITY RX Medtronic 1 [id number] 025110 694757 706694 5 [id number] 2.5 x 08 stent ([id number]) TR BAND Terumo 1 [id number] 887270 821814 285282 40 Large (CEE81ULK) EXOSEAL 6Fr Cardinal 1 EX600 794258 972335 230411 10 (EX600) Health Signature Audit [place] Stage Time Signature Unsigned Intra-Procedure 10/14/2018 Jung LI(Duarte) 10:36:59 AM Signatures Monitor : Jung Sandoval RT Signature : Date : Time : [address] [address]
--- NOTE | ~2018-10-14 | HP ---
PATIENT: MING BURGER MEDICAL RECORD: [id number] ACCOUNT: [id number] LOCATION:[facility] : 71 ADMISSION DATE: 10/14/18 PCP: JEAN OLIVEIRA HISTORY AND PHYSICAL EXAMINATION ADMITTING DIAGNOSES: 1. Angina. 2. Coronary artery disease. 3. Previous multivessel percutaneous transluminal coronary angioplasty stent. 4. Hypertension. 5. Hyperlipidemia. 6. Chronic obstructive pulmonary disease. HISTORY OF PRESENT ILLNESS: Mr. Burger has had continued anginal symptomatology. Nuclear stress test does reveal reversible ischemia. He has a long history of coronary disease, multivessel PTCA stent, now brought in for cardiac catheterization. PHYSICAL EXAMINATION: GENERAL APPEARANCE: Well-nourished, well-developed, appears stated age. Level of distress, comfortable. PSYCHIATRIC: Mental status, alert, normal affect. Orientation, oriented to time, place and person. EYES: Lids and conjunctiva, noninjected. No discharge, no pallor. ENT: Lips, teeth, gums, normal dentition. Oropharynx, no cyanosis, no pallor. NECK: Carotid arteries, bilateral normal upstroke, no bruits, no thrills. JUGULAR VEINS: No jugular venous pressure or distention. CERVICAL LYMPH NODES: Nontender, nonenlarged. THYROID: Not enlarged. Nontender. No nodules. LUNGS: Respiratory effort, unlabored. CHEST: Normal curvature. No thoracic deformity. No chest wall tenderness. Percussion, resonant. Auscultation, clear. No wheezes, no rales, no rhonchi. CARDIOVASCULAR: Precordial exam, nondisplaced. No heaves or pericardial thrills. Rate and rhythm, regular. Heart sounds, normal S1, normal S2. No S3, no gallop, no rub. Systolic murmur, not heard. Diastolic murmur, not heard. EXTREMITIES: No cyanosis, no edema. Peripheral pulses, full and equal in all extremities, except as noted. No bruits appreciated. ABDOMEN: Soft, nondistended. Normal aorta. No bruit. Nontender. No masses. Liver, nontender, no hepatomegaly. Spleen, nontender, no splenomegaly. MUSCULOSKELETAL: No joint tenderness. No joint swelling. No erythema. NEUROLOGICAL: Normal gait, normal strength, normal tone. SKIN: Warm and dry. OVERALL IMPRESSION: Anginal symptomatology with abnormal nuclear stress test in a patient with multivessel coronary disease, most likely he has recurrent hemodynamically significant disease. We will proceed with coronary angiography. Further care depends upon findings of the angiography. TRANSINT:[id number] Voice Confirmation ID: [id number] DOCUMENT ID: [id number] HISTORY AND PHYSICAL [id number] MING BURGER JEFFREY MD CC: [id number] DICTATION DATE: 10/14/18 0959 SPRING COILING MACHINE SETTER: 10/14/18 1007 [facility] [address] [id number]
[~2018-10-14 07:55] MED LIST changes: -BACLOFEN10 MG PO
[2018-10-14] MEDS ORDERED: BACLOFEN10 MG PO (08:09)
[2018-10-14 08:19] VITALS: BP 137/89; Ht 162.6 cm; Wt 109.1 kg
[2018-10-14 08:46] LABS: BASOPHILS 0.3 % (0-2); EOSINOPHILS 3.9 % (0-7); HEMATOCRIT 43.2 % (36.0-48.0); HEMOGLOBIN 14.7 g/dL (12-16); IMMATURE GRANULOCYTES 0.3 % (0-5); LYMPHOCYTES 19.2 % (15-50); MCH 30.1 pg (26.0-34.0); MCV 88.3 fL (80.0-100.0); MEAN PLATELET VOLUME 10.5 fL (7.4-10.4); MONOCYTES 5.2 % (2-11); NEUTROPHILS 71.1 % (40-80); RBC 4.89 10x6/uL (4.00-5.40); RDW 13.3 % (11.5-14.5); WBC 10.8 10x3/uL (4.8-10.8)
[2018-10-14 08:47] LABS: CALC OSMOLALITY 271 mosm/kg (275-300); CALCIUM 8.7 mg/dL (8.5-10.1); CARBON DIOXIDE 23.6 mmol/L (21.0-32.0); CHLORIDE - SERUM 100 mmol/L (98-107); CREATININE - SERUM 0.6 mg/dL (0.6-1.3); GLUCOSE 153 mg/dL (74-106); POTASSIUM - SERUM 4.5 mmol/L (3.5-5.1); SODIUM 135 mmol/L (136-145); UREA NITROGEN 10 mg/dL (7-18); eGFR NON AFRICAN AMERICAN > 90 mL/min (90-120)
[2018-10-14 08:51] LABS: PLATELET COUNT 331 10x3/uL (130-400)
--- NOTE | 2018-10-14 10:45 | NUR ---
PT RECEIVED VIA STRETCHER FROM [employer] FOR [employer]OVERY. PT DROWSY BUT AROUSABLE. TR BAND TO R WRIST IN PLACE, DRESSING CDI NO BLEEDING OR HEMATOMA NOTED. 6 FR EXOCELE TO R GROIN, DRESSING CDI NO BLEEDING OR SWELLING NOTED. HR NSR, RATE 78, BP 149/80, O2 SAT 98 ON 2L/NC. PT DENIES CHEST PAIN OR NAUSEA. PT INSTRUCTED ON LAYING FLAT AND KEEPING R LEG STRAIGHT, SHE VERBALIZED UNDERSTANDING. CALL LIGHT IN REACH AND FAMILY AT BEDSIDE
--- NOTE | 2018-10-14 11:03 | NUR ---
PT RESTING W EYES CLOSED, TR BAND IN PLACE DRESSING CDI NO BLEEDING OR HEMATOMA NOTED. R GROIN DRESSING CDI NO BLEEDING OR SWELLING NOTED. VSS. CALL LIGHT IN REACH.
--- NOTE | 2018-10-14 11:31 | NUR ---
PT REMAINS SLEEPING, TR BAND IN PLACE NO BLEEDING OR SWELLING NOTED. R GROIN REMAINS SOFT, NO BLEEDING OR SWELLING NOTED. CALL LIGHT IN REACH, FAMILY REMAINS AT BEDSIDE.
--- NOTE | 2018-10-14 11:45 | NUR ---
PT RESTING QUIETLY W EYES CLOSED, FAMILY AT BEDSIDE. TR BAND AND IMMOBILIZER IN PLACE, DRESSING CDI NO BLEEDING OR SWELLING NOTED. R GROIN DRESSING CDI, NO BLEEDING OR HEMATOMA NOTED. DENIES NEEDS. CALL LIGHT IN REACH.
--- NOTE | 2018-10-14 12:01 | NUR ---
PT RESTING W/O COMPLAINTS. TR BAND IN PLACE, NO BLEEDING OR SWELLING NOTED. R GROIN DRESSING CDI NO BLEEDING OR SWELLING NOTED.
--- NOTE | 2018-10-14 12:30 | NUR ---
2L NC, NO RESP DISTRESS. RIGHT WRIST TR BAND AND RIGHT GROIN 6F EXOSEAL CDI, NO BLEEDING OR HEMATOMA NOTED TO EITHER SITE. NO C/O PAIN OR NAUSEA. VSS. FAMILY AT BEDSIDE, CALL LIGHT WITHIN REACH.
--- NOTE | 2018-10-14 13:00 | NUR ---
CONTINUES TO REST COMFORTABLY WITH NO C/O. RIGHT WRIST TR BAND AND RIGHT GROIN 6F EXOSEAL CDI, NO BLEEDING OR HEMATOMA NOTED. VSS. WILL CONTINUE TO MONITOR.
--- NOTE | 2018-10-14 13:35 | NUR ---
HOB ELEVATED 30 DEGREES. RIGHT GROIN 6F EXOSEAL CDI, NO BLEEDING OR HEMATOAM NOTED. 3CC OF AIR REMOVED FROM TR BAND WITH NO BLEEDING. SIPPING ON DRINK AND EATING SANDWICH WITH NO C/O NAUSEA. VSS. WILL CONTINUE TO MONITOR CLOSELY.
--- NOTE | 2018-10-14 13:50 | NUR ---
3CC OF AIR REMOVED FROM TR BAND WITH NO BLEEDING NOTED. NO NEEDS VOICED. VSS. CALL LIGHT WITHIN REACH.
--- NOTE | 2018-10-14 14:15 | NUR ---
LEFT PIV D/C'D WITH CATHETER INTACT, BAND AID TO SITE. UP TO BEDSIDE TO GET DRESSED.
--- NOTE | 2018-10-14 14:22 | NUR ---
REMAINING AIR REMOVED FROM TR BAND WITH NO BLEEDING. DRESSING PLACED TO SITE. RIGHT GROIN 6F EXOSEAL CDI, NO BLEEDING NOTED. DISCHARGE INSTRUCTIONS GIVEN, VERBALIZED UNDERSTANDING.
--- NOTE | 2018-10-14 14:35 | NUR ---
TAKEN OUT VIA WHEELCHAIR BY CATH BLACKSMITH SUPERVISOR. STOPPED AT RESTROOM ON WAY OUT. LEFT FACILITY WITH FAMILY AND ALL PERSONAL BELONGINGS.
[2018-10-14 14:54] LABS: HCG SERUM NEGATIVE (NEGATIVE)
== END 2018-10-14 14:35 | disposition home or self-care (01) ==
LOC: D.CATH 07:55
PROVIDERS: ATTEND Internal Medicine Interventional Cardiology
DX: I25.119 Atherosclerotic heart disease of native coronary artery with unspecified angina pectoris (principal); Z95.5 Presence of coronary angioplasty implant and graft; I10 Essential (primary) hypertension; E78.5 Hyperlipidemia, unspecified; J44.9 Chronic obstructive pulmonary disease, unspecified; Z01.812 Encounter for preprocedural laboratory examination

== ENCOUNTER → 2020-03-29 08:47 | Outpatient (CLI) | payer OTHER, MEDICAID ==
[2018-10-14 08:19] VITALS: BMI 41.3
--- NOTE | ~2020-03-29 | EC ---
PATIENT:MING KENT DATE OF SERVICE: 03/29/20 SEX: F MEDICAL RECORD: [id number] DATE OF : 71 LOCATION:[facility] AGE OF PATIENT: 44 ADMISSION DATE: 03/29/20 REFERRING PHYSICIAN: INTERPRETING PHYSICIAN: JOEL MCCABE MD ECHOCARDIOGRAM REPORT ECHO CHARGES 4 ECHO COMPLETE Date: 03/29/20 CLINICAL DIAGNOSIS: HEART MURMUR ECHOCARDIOGRAPHIC MEASUREMENTS (adult normal given) AC root (d.<3.7cm) 3.1 cm LV Septum d (<1.2 cm> 1.3 cm Valve Excursion 1.3 cm LV Septum (systole) 1.7 cm Left Atria (s.<4.0cm> 3.7 cm LVPW d(<1.2cm) 1.4 cm RV (d.<2.3cm) 3.6 cm LVPW (sytole) 1.5 cm LV diastole(<5.6CM) 3.9 cm MV E-F(>70mm/sec) cm LV systole 2.7 cm LVOT Diameter 1.8 cm MV exc.(>10mm) 1.2 cm Est.ejection fraction (50-75%) % DOPPLER: LVIT cm/sec A 78.0 cm/sec E 113.0 cm/sec LA cm/sec RVSP 32 mmHg LVOT 150 cm/sec AOP1/2T m/s Asc. Ao 158 cm/sec RVOT cm/sec RA cm/sec PA cm/sec AV Gradient Peak 9.97 mmHg AV Mean 4.96 mmHg AV Area 2.1 cm MV Gradient Peak 7.51 mmHg MV Mean 2.70 mmHg MV Area cm COMMENTS: Resource Development Manager: 2 MARICEL SCOTT Spanner Operator: 3 Dr. Pulliam TAPE# PACS Pericardial Effusion N DATE OF SERVICE: Adequate 2D, color flow imaging, spectral Doppler, and M-Mode. Mild LVH. LV internal dimension is normal. Wall motion is normal. EF is greater than or equal to 55%. Aortic valve is tricuspid. No evidence of stenosis by Doppler interrogation. Left atrium is normal. Mitral valve shows no prolapse. Trace MR. Right-sided chambers are grossly normal. Trace TR. TRANSINT:[id number] Voice Confirmation ID: [id number] DOCUMENT ID: [id number] ECHOCARDIOGRAM REPORT [id number] KENT,MING JOEL BRANCH MD CC: [id number] DICTATION DATE: 04/01/20 1634 BRICK DROPPER: 04/01/206 DEP CLI 03/29/20 [id number] [place] [address]
[~2020-03-29 08:47] MED LIST changes: +BACLOFEN10 MG PO
== END | disposition home or self-care (01) ==
LOC: D.HCCARDIO 08:47 → D.HCCECHO 10:30
PROVIDERS: ATTEND Internal Medicine Cardiovascular Disease
DX: I25.10 Atherosclerotic heart disease of native coronary artery without angina pectoris (principal); R01.1 Cardiac murmur, unspecified

== ENCOUNTER 2020-04-10 07:51 | Day surgery (SDC) | payer OTHER, MEDICAID ==
[~2020-04-10] VITALS: Ht 162.6 cm; Wt 149.5 kg
--- NOTE | ~2020-04-10 | HEMODYNAMI ---
PATIENT:MING KENT MEDICAL RECORD: [id number] : 71 LOCATION:[facility] ADMISSION DATE: 04/10/20 Generatedon:04/10/202011:14 Patient name: MING KENT Patient #: [id number] SSN: [id number] : 1975 Date of study: 04/10/2020 Page: Of Hemodynamic Procedure Report Patient Data Patient Demographics Procedure consent was obtained First Name: MING Gender: Female Last Name: YOLI : 1975 [facility] Initial: YEIMI Age: 44 year(s) Patient #: [id number] Race: SSN: [id number] Additional ID: [id number] Contact details Address: [address] [place] [address] State: [place] City: [place] Zip code: [address] Past Medical History Allergies Allergen Reaction Date Comments Reported Penicillins 10/14/2018 Sulfa drugs 10/14/2018 Admission Admission Data Admission Date: 04/10/2020 Admission Time: 7:51 Arrival Date: 04/10/2020 Arrival Time: 0:00 Insurance Payor: Private health insurance [facility] #: [id number] Height (in.): 64 BSA: 2.42 (m2) Height (cm.): 162.56 BMI: 56.59 (kg/m2) Weight (lbs.): 329.68 Weight (kg.): 149.54 Lab Results Lab Result Date: 04/10/2020 Lab Result Time: 0:00 Biochemistry Name Units Result Min Max BUN mg/dl 18 --(---*)-- 7 18 Creatinine mg/dl 0.9 --(-*--)-- 0.6 1.3 eGFR ml/min 70.78289 *-(----)-- 90 120 NONAFRICAN Procedure Procedure Types Cath Procedure Diagnostic Procedure [facility] w/Coronaries FFR/IVUS FFR Initial Sedation Charges Moderate Sedation up to 45 minutes PCI Procedure Coronary Stent Coronary Stent Initial Hemochron ACT Test Procedure Description Procedure Date Procedure Date: 04/10/2020 Procedure Start Time: 10:24 Procedure End Time: 11:04 Procedure Staff Name Function Khalif Vargas MD Performing Physician Loren Scott RT Monitor Dariela Salinas RT Scrub Manas Yanez RN Nurse Procedure Data Cath Procedure Fluoroscopy Diagnostic fluoroscopy Total fluoroscopy Time: 9 time: 9 min min Diagnostic fluoroscopy Total fluoroscopy dose: dose: 2861 mGy 2861 mGy Contrast Material Contrast Material Type Amount (ml) Isovue 300 186 Entry Location Entry Primary Successful Side Size Upsize Upsize Entry Closure Succes sful Closure Location (Fr) 1 (Fr) 2 (Fr) Remarks Device Remarks Femoral Right 5 Fr 6 Fr Exoseal artery Short Estimated blood loss: 5 ml Diagnostic catheters Device Type Used For End Catheter Placement MULTIPACK JL 4.0 5Fr Left Coronary catheter Angiography MULTIPACK 3DRC 5Fr Right Coronary catheter Angiography MULTIPACK Pigtail 5 Fr LV Angiography catheter Procedure Complications No complications Procedure Medications Medication Administration Route Dosage Oxygen etCO2 Nasal cannula 2 l/min Lidocaine 2% added to field 20 Heparin Flush Bag added to field 2 bags (1000units/500ml NS) 0.9% NaCl I.V. 100 ml/hr Versed I.V. 2 mg Fentanyl I.V. 100 mcg Versed I.V. 1 mg Fentanyl I.V. 50 mcg Versed I.V. 1 mg Fentanyl I.V. 50 mcg Heparin Bolus I.V. 2000 units Versed I.V. 2 mg Heparin Bolus I.V. 3000 units Integrilin (Bolus I.V. 11.3 ml 2mg/ml) Morphine I.V. 4 mg Lopressor I.V. 5 mg Heparin Bolus I.V. 2000 units Plavix P.O. 600 mg Hemodynamics Rest BSA: 2.42 (m2) O2 Consumption: Estimated: 243.63 (ml/min) O2 Consumption indexed : Estimated:100.67 (ml/min/m) Heart Rate: 74 (bpm) Snapshots Pre Cath Intra NCS Post Cath Vital Signs Time Heart Resp SPO2 etCO2 NIBP (mmHg) Rhythm Pain Status Sedation Rate (ipm) (%) (mmHg) Level (bpm) 9:55:23 69 21 99 35.3 Measuring NSR 0 (11) , No 10(A) pain 9:59:50 70 22 99 36.8 137/81(115) NSR 0 (11) , No 10(A) pain 10:04:44 67 22 99 24 83/63(76) NSR 0 (11) , No 10(A) pain 10:09:17 69 19 98 17.2 129/83(100) NSR 0 (11) , No 10(A) pain 10:13:19 69 19 97 17.2 136/83(102) NSR 0 (11) , No 10(A) pain 10:17:24 69 19 97 28.5 131/79(105) NSR 0 (11) , No 10(A) pain 10:21:28 70 14 94 32.2 138/80(107) NSR 0 (11) , No 10(A) pain 10:25:25 68 13 96 35.2 144/91(114) NSR 0 (11) , No 10(A) pain 10:29:23 70 13 95 27 139/90(119) NSR 0 (11) , No 10(A) pain 10:34:59 73 15 95 41.3 148/87(119) NSR 0 (11) , No 10(A) pain 10:39:09 78 13 94 31.5 135/86(109) NSR 0 (11) , No 10(A) pain 10:43:54 76 14 93 38.3 189/115(145) NSR 0 (11) , No 10(A) pain 10:48:05 81 16 96 19.5 186/123(159) NSR 0 (11) , No 10(A) pain 10:52:19 73 13 94 42.8 193/115(149) NSR 6 (11) , 10(A) Intense 10:56:36 84 20 95 33 175/113(148) NSR 6 (11) , 10(A) Intense 11:00:43 75 22 95 32.3 174/118(134) NSR 2 (11) , 10(A) Uncomfortable Medications Time Medication Route Dose Verified Delivered Reason Notes Effectiveness by by 10:05:19 Oxygen etCO2 2 Khalif Malagon used for Nasal l/min St Kalin Yanez education and training coordinator cannula 10:05:28 Lidocaine 2% added 20ml Khalif Cuadra for local to vial St Kalin Vargas anesthetic field MD MAYO 10:05:35 Heparin Flush added 2 Khalif Cuadra used for Bag to bags St Kalin Vargas procedure (1000units/500ml field MD MAYO NS) 10:05:42 0.9% NaCl I.V. 100 Khalif Malagon Per physician ml/hr St Kalin Yanez RN, MD 10:18:54 Versed I.V. 2 mg Khalif Buffie for sedation St Kalin Yanez RN, MD 10:19:02 Fentanyl I.V. 100 Khalif Lopesie for sedation mcg St Kalin Yanez RN, MD 10:24:38 Versed I.V. 1 mg Khalif Lopesie for sedation St Kalin Yanez RN, MD 10:24:41 Fentanyl I.V. 50 Khalif Lopesie for sedation mcg St Kalin Yanez RN, MD 10:31:48 Versed I.V. 1 mg Khalif Lopesie for sedation St Kalin Yanez RN, MD 10:31:51 Fentanyl I.V. 50 Khalif Lopesie for sedation mcg St Kalin Yanez RN, MD 10:38:54 Heparin Bolus I.V. 2000 Khalif Malagon for verif ied units St Kalin Yanez RN anticoagulation with st MD angulo for ifr 10:41:30 Versed I.V. 2 mg Khalif Lopesie for sedation St Kalin Yanez RN, MD 10:45:41 Heparin Bolus I.V. 3000 Khalif Malagon for verif ied units St Kalin Yanez RN anticoagulation with st MD angulo 10:48:09 Integrilin I.V. 11.3 Khalif Malagon for waste d (Bolus 2mg/ml) ml St Kalin Yanez RN antiplatelet 8.7 ml MD therapy of vial 10:55:56 Morphine I.V. 4 mg Khalif Malagon for chest pain St Kalin Yanez RN, MD 11:02:17 Lopressor I.V. 5 mg Khalif Malagon Per physician St Kalin Yanez RN, MD 11:05:43 Heparin Bolus I.V. 2000 Khalif Malagon for due t o units St Kalin Yanez RN anticoagulation act MD result., verified with elsa 11:06:56 Plavix P.O. 600 Khalif Malagon for mg St Kalin Yanez RN antiplatelet therapy Procedure Log Time Note 9:28:41 Informed consent obtained and on chart 9:28:59 Diagnostic Cath Status : Elective 9:29:39 Arrival Date: 04/10/2020 12:00:00 AM 9:29:42 Insurance Payor : Private health insurance 9:30:34 Patient Height : 64 inches 9:30:37 Patient Weight : 329.68 lbs 9:32:02 Lab Result : eGFR NONAFRICAN 70.67883 ml/min 9:32:02 Lab Result : Creatinine 0.9 mg/dl 9:32:02 Lab Result : BUN 18 mg/dl 9:41:41 Procedure Status Elective Heart Cath (OP). 9:41:48 Manas Yanez RN sent for patient. Start room use. 9:41:49 Time tracking: Regular hours (M-F 7:00 - 5:00) 9:41:52 Plan of Care:Hemodynamics will remain stable., Cardiac rhythm will remain stable., Comfort level will be maintained., Respiratory function will remain adequate., Patient/ family verbilizes understanding of procedure., Procedure tolerated without complication., Recovers from procedure without complications.. 9:45:37 Patient received from Pre/Post Procedure Room to CCL 2 Alert and oriented. Tansferred to table in Supine position. 9:45:37 Warm blankets applied, and magnolia hugger turned on for patient comfort. 9:45:38 Correct patient and procedure confirmed by team. 9:45:38 ECG and BP/O2 sat monitors applied to patient. 9:53:34 Baseline sample Acquired. 9:53:34 Vital chart was started 9:53:39 Rhythm: sinus rhythm 9:53:40 Full Disclosure recording started 9:53:43 H&P Date Dictated: 04/10/2020 Within 30 days and on chart., H&P Addendum completed by physician on day of procedure. (MUST COMPLETE FOR ALL OUTPATIENTS). 9:53:45 Pre-procedure instructions explained to patient. 9:53:45 Pre-op teaching completed and patient verbalized understanding. 9:53:46 Family in patients room. 9:53:48 Patient NPO since Midnight. 9:53:50 Is the patient allergic to Iodine/contrast media? No. 9:53:51 Was the patient premedicated? Yes 9:53:51 Is patient on blood thinner?No 9:53:53 Patient diabetic? Yes. 9:53:54 If diabetic: On Metformin? Yes 9:54:50 patient states she does not take her metformin 9:54:54 Previous problem with sedation/anesthesia? No ? 9:54:55 Snore? Yes 9:54:56 Sleep apnea? Yes 9:55:25 patient states she does not use her CPAP 9:55:32 Deviated septum? No 9:55:32 Opens mouth fully? Yes 9:55:33 Sticks out tongue? Yes 9:55:37 Airway obstruction? No ? 9:55:39 Dentures? No ? 9:55:44 Pre procedure: right dorsailis pedis pulse 1+ Palpable, but thready & weak; easily obliterated 9:55:47 Pre procedure: left dorsailis pedis pulse 1+ Palpable, but thready & weak; easily obliterated 9:55:53 Patient pain scale 0/10 ?. 9:55:59 IV patent on arrival in left forearm with 0.9% NaCl at [facility]. 9:56:02 Lab results completed and on chart. 9:56:07 Right groin area was prepped with chlora-prep and draped in sterile fashion 9:56:07 Alarms reviewed by R. N. 9:56:08 Sharps counted by scrub and verified by R.N. 10:04:39 Zero performed for pressure channel P1 10:05:19 Oxygen 2 l/min etCO2 Nasal cannula was administered by Manas Yanez RN; used for procedure; Verbal order read back and verified. 10:05:28 Lidocaine 2% 20ml vial added to field was administered by Khalif Vargas MD; for local anesthetic; Verbal order read back and verified. 10:05:35 Heparin Flush Bag (1000units/500ml NS) 2 bags added to field was administered by Khalif Vargas MD; used for procedure; Verbal order read back and verified. 10:05:42 0.9% NaCl 100 ml/hr I.V. was administered by Manas Yanez RN; Per physician; Verbal order read back and verified. 10:17:47 Physician arrived 10:17:47 --------ALL STOP TIME OUT------ 10:17:47 Final Timeout: patient, procedure, and site verified with staff and physician. All members of the team are in agreement. 10:17:50 Right groin site verified by team. 10:17:53 Fire Safety Assessment: A--An alcohol-based skin anteseptic being used preoperatively., C--Open oxygen or nitrous oxide is being used., D--An ESU, laser, or fiber-optic light is being used. 10:17:57 Physical assessment completed. ASA score P 2 - A patient with mild systemic disease as per Khalif Vargas MD. 10:18:17 2) 60-89 Mildly reduced kidney function, and other findings (as for stage 1) point to kidney disease. 10:18:39 Maximum allowable contrast dose (3.7 X eGFR X 0.75)197 ml. 10:18:44 Sedation plan: IV Moderate Sedation Medication:Versed, Fentanyl 10:18:47 Use device set Femoral Dx 10:18:48 ACIST Syringe (94542) opened to sterile field. 10:18:49 Bag Decanter (2002S) opened to sterile field. 10:18:49 Medline Cath Pack ([id number]) opened to sterile field. 10:18:50 ACIST Hand Control (33054) opened to sterile field. 10:18:51 ACIST Manifold (86912) opened to sterile field. 10:18:51 DIAGNOSTIC Multipack 5Fr catheter set (YX1720) opened to sterile field. 10:18:51 Tegaderm 4 x 4 (1626W) opened to sterile field. 10:18:52 SHEATH 5FR [place] (OZH395) opened to sterile field. 10:18:53 EMERALD Guide Wire (693-908) opened to sterile field. 10:18:54 Versed 2 mg I.V. was administered by aMnas Yanez RN; for sedation; Verbal order read back and verified. 10:19:02 Fentanyl 100 mcg I.V. was administered by Manas Yanez RN; for sedation; Verbal order read back and verified. 10:24:17 Procedure started. 10:24:21 Local anesthetic to right femoral artery with Lidocaine 2% by Khalif Vargas MD.INITIAL ACCESS ONLY 10:24:38 Versed 1 mg I.V. was administered by Manas Yanez RN; for sedation; Verbal order read back and verified. 10:24:41 Fentanyl 50 mcg I.V. was administered by Manas Yanez RN; for sedation; Verbal order read back and verified. 10:24:49 A 5 Fr sheath was inserted into the Right Femoral artery 10:30:45 A MULTIPACK JL 4.0 5Fr catheter was advanced over the wire and used for Left Coronary Angiography. 10:31:48 Versed 1 mg I.V. was administered by Manas Yanez RN; for sedation; Verbal order read back and verified. 10:31:51 Fentanyl 50 mcg I.V. was administered by Manas Yanez RN; for sedation; Verbal order read back and verified. 10:32:03 LCA angiography performed. 10:32:05 Injector settings: Ml/sec: 3, Volume: 6, 10:33:09 Catheter removed. 10:33:33 A MULTIPACK 3DRC 5Fr catheter was advanced over the wire and used for Right Coronary Angiography. 10:34:16 RCA angiography performed. 10:34:19 Injector settings: Ml/sec: 3, Volume: 6, 10:34:23 Catheter removed. 10:34:42 A MULTIPACK Pigtail 5 Fr catheter was advanced over the wire and used for LV Angiography. 10:36:01 LV hemodynamics recorded. 10:36:02 LV gram done using COLEMAN 10:36:08 EF : 55 % 10:36:13 Catheter removed. 10:36:55 INFLATOR Merit BasixCompak (YP3190) opened to sterile field. 10:36:56 [place] Verrata Plus pressure wire (21335H) opened to sterile field. 10:36:57 SHEATH 6FR [place] (NOZ048) opened to sterile field. 10:37:24 Proceeding to intervention. 10:37:50 5 Fr jl 4 guide catheter was inserted over the wire 10:37:57 FFR/IFR wire advanced. 10:37:59 Baseline FFR 1. 10:38:54 Heparin Bolus 2000 units I.V. was administered by Manas Yanez RN; for anticoagulation; verified with st angulo for ifr Verbal order read back and verified. 10:41:30 Versed 2 mg I.V. was administered by Manas Yanez RN; for sedation; Verbal order read back and verified. 10:44:27 mLAD lesion measured at 0.79 with IFR 10:44:59 Wire removed. 10:45:09 Catheter removed. 10:45:41 Heparin Bolus 3000 units I.V. was administered by Manas Yanez RN; for anticoagulation; verified with st angulo Verbal order read back and verified. 10:45:54 GUIDE 6FR JL 4.0 catheter (FC9NH96) opened to sterile field. 10:45:55 BMW 300cm [place] 2 J wire ([id number]) opened to sterile field. 10:46:32 Sheath upsized to a 6 Fr Short. 10:46:33 6 Fr jl 4 guide catheter was inserted over the wire 10:46:37 ACC Pre-intervention JOSIE Flow is 3. 10:46:46 WHISPER 300cm guide wire ([id number]) opened to sterile field. 10:46:46 Pre PCI Site: [place] mLAD has 80% stenosis. 10:46:50 whisper wire advanced. 10:46:51 whisper wire damaged 10:46:52 Wire removed. 10:47:51 bmw wire advanced. 10:48:09 Integrilin (Bolus 2mg/ml) 11.3 ml I.V. was administered by Manas Yanez RN; for antiplatelet therapy; wasted 8.7 ml of vial Verbal order read back and verified. 10:53:55 Wire advanced across lesion. 10:55:32 Place stent Inflation Number: 1 A ENMA OTW 3.0 x 08 stent ([id number]) was prepped and advanced across the Prox LAD 80. The stent was deployed at 14 DARCY for 0:30 (min:sec) 0. 10:55:56 Morphine 4 mg I.V. was administered by Manas Yanez RN; for chest pain; Verbal order read back and verified. 10:57:45 Inflation number: 2 The stent balloon was then re-inflated across the Prox LAD 0 to 12 DARCY for 0:30 (min:sec) . 10:58:35 Stent catheter was removed intact over wire. 10:58:36 Wire removed. 10:58:36 Guide catheter removed. 10:59:42 EXOSEAL 6Fr (EX600) opened to sterile field. 10:59:59 Sheath removed intact; hemostasis achieved with Exoseal to the Right Femoral artery. 11:00:00 Procedure ended.(Physican Out) 11:01:20 Fluoroscopy time 09.00 minutes. 11:01:24 Fluoroscopy dose: 2861 mGy 11:01:24 Flurop Dose total: 2861 11:01:57 Dose Area Product 635928 mGy/cm. 11:02:02 Contrast amount:Isovue 300 186ml. 11:02:03 Maximum allowable dose exceeded? No. 11:02:12 Sharps counted by scrub and verified by R.N. 11:02:13 Insertion/operative site no bleeding no hematoma. 11:02:15 Post-op/insertion site Right Femoral artery dressed using a 4 x 4 and Tegaderm. 11:02:16 Post Procedure Pulses reassessed and unchanged 11:02:17 Lopressor 5 mg I.V. was administered by Manas Yanez RN; Per physician; Verbal order read back and verified. 11:02:20 Post procedure rhythm: unchanged. 11:02:22 Estimated blood loss: 5 ml 11:02:23 Post procedure instruction explained to patient.Patient verbalizes understanding. 11:02:24 Patient needs reinforcement of post procedure teaching. 11:03:43 Procedure type changed to Cath procedure, Diagnostic procedure, LHC, [facility] w/Coronaries, FFR/IVUS, FFR Initial, Sedation Charges, Moderate Sedation up to 45 minutes, PCI procedure, Coronary Stent, Coronary Stent Initial, Hemochron ACT Test 11:03:44 Procedure and supply charges have been captured, reviewed, submitted and are correct. 11:03:48 Procedure Complication : No complications 11:03:50 Vital chart was stopped 11:03:[address] [facility] Findings: MVD- PCI performed (see procedure note) 11:03:54 Operative report dictated upon procedure completion. 11:03:54 See physician's report for complete and final results. 11:03:58 Report given to Pre/Post Procedure Room. 11:04:00 Patient transfered to Pre/Post Procedure Room with Stretcher. 11:04:03 Procedure ended. 11:04:03 Full Disclosure recording stopped 11:04:08 ACT drawn and resulted at 169 seconds. (normal therapeutic range 180-240 seconds). 11:04:12 ACC-PCI Only Patient was given prescriptions, or instructed by Khalif Vargas MD to start/continue the following medications upon discharge: Plavix 11:04:14 End room use (Document Last) 11:05:43 Heparin Bolus 2000 units I.V. was administered by Manas Yanez RN; for anticoagulation; due to act result., verified with elsa Verbal order read back and verified. 11:06:56 Plavix 600 mg P.O. was administered by Manas Yanez RN; for antiplatelet therapy; Verbal order read back and verified. Intervention Summary Intervention Notes Time ActionType Lesion and Equipment Action# Pressure Duration Attributes Used 10:55:32 Place stent Prox LAD ENMA OTW 3.0 1 14 00:30 x 08 stent ([id number]) 10:57:45 Reinflate Prox LAD ENMA OTW 3.0 2 12 00:30 stent x 08 stent balloon ([id number]) Device Usage Item Name Manufacture Quantity Catalog [facility] Lot# / Number Charge Number Stock Stock Serial# Code ACIST Syringe Acist 1 03119 262914 435972 612019 20 (48847) Medical Systems Inc Bag Decanter Microtek 1 398931 84769 830230 5 (2001S) Medical Inc. Medline Cath Medline 1 [id number] 623434 29251 742151 5 Pack ([id number]) ACIST Hand Acist 1 85645 806672 839944 472702 5 Control Medical (03283) Systems Inc ACIST Acist 1 27755 426488 185534 233025 5 Manifold Medical (22196) Systems Inc DIAGNOSTIC Cardinal 1 UD5179 669314 97641 098636 30 Multipack 5Fr Health catheter set (NE0017) Tegaderm 4 x 3M 1 1626W 018352 851539 708060 5 4 (1626W) SHEATH 5FR Terumo 1 JVC704 668429 989919 268827 5 [place] (QQH508) EMERALD Guide Cardinal 1 502-455 239039 198137 316001 5 Wire Health (502-455) MULTIPACK JL Cardinal 1 539956 5 4.0 5Fr Health catheter MULTIPACK Cardinal 1 413853 5 3DRC 5Fr Health catheter MULTIPACK Cardinal 1 851362 5 Pigtail 5 Fr Health catheter INFLATOR [facility] 1 LA3174 208121 477996 650993 15 [facility] BasixCompak (GF2324) [place] 1 47785S 451505 949173371 402860 5 Verrata Plus pressure wire (36470U) SHEATH 6FR Terumo 1 LLF775 116709 547566 037604 40 [place] (OKD738) GUIDE 6FR JL Medtronic 1 [id number] 300745 12098 883638 1 4.0 catheter (PX3PQ21) BMW 300cm Acuna 1 [id number] 131476 850626 847200 5 [place] 2 J Vascular wire (9772402P) WHISPER 300cm Acuna 1 [id number] 792213 274476 040846 5 guide wire Vascular ([id number]) ENMA OTW 3.0 Medtronic 1 [id number] 426183 9058220 909994 5 [id number] x 08 stent ([id number]) EXOSEAL 6Fr Cardinal 1 EX600 107552 653000 678120 10 (EX600) Health Signature Audit Burns Stage Time Signature Unsigned Intra-Procedure 04/10/2020 Loren Scott 11:07:49 AM RT(R) Intra-Procedure 04/10/2020 Manas Yanez RN 11:13:42 AM Intra-Procedure 04/10/2020 Khalif Wetzel 11:14:01 AM Kalin MAYO Signatures Performing Physician : Signature : Khalif Vargas MD Date : Time : Monitor : Loren Scott RT Signature : Date : Time : Nurse : Manas Yanez RN Signature : Date : Time : [facility] [address] [place] [address]
[2020-04-10] MEDS ORDERED: CATAPRES0.1 MG PO (08:50)
[2020-04-10] MEDS ORDERED: ZESTRIL10 MG PO (08:51)
[2020-04-10] MEDS ORDERED: BUSPAR 15 MG TA15 MG PO (08:52)
[2020-04-10] MEDS ORDERED: NITROSTAT0.4 MG SL (08:53)
[2020-04-10] MEDS ORDERED: TOPAMAX50 MG PO (08:54)
[2020-04-10] MEDS ORDERED: SINGULAIR10 MG PO (08:56)
[2020-04-10] MEDS ORDERED: LIPITOR20 MG PO (08:56)
[2020-04-10] MEDS ORDERED: LEXAPRO20 MG PO (08:57)
[2020-04-10] MEDS ORDERED: LASIX20 MG PO (08:58)
[2020-04-10] MEDS ORDERED: BAYER CHEWABLE81 MG PO (08:58)
[2020-04-10] MEDS ORDERED: FLUTICASONE PRO16 GM NASAL (08:59)
[2020-04-10 09:09] VITALS: BP 117/45; Ht 162.6 cm; Wt 149.5 kg
[2020-04-10 09:23] LABS: ANION GAP 9.5 mmol/L (8-16); CALCIUM 8.7 mg/dL (8.5-10.1); CARBON DIOXIDE 27.1 mmol/L (21.0-32.0); CHOL - HDL RATIO 2.9 ratio (2.3-4.1); CREATININE - SERUM 0.9 mg/dL (0.6-1.3); LDL-HDL RATIO 1.5 ratio (1.5-3.5); POTASSIUM - SERUM 3.6 mmol/L (3.5-5.1)
[2020-04-10 10:04] LABS: BASOPHILS 0.4 % (0-2); EOSINOPHILS 3.9 % (0-7); HEMATOCRIT 41.6 % (36.0-48.0); HEMOGLOBIN 13.4 g/dL (12-16); IMMATURE GRANULOCYTES 0.2 % (0-5); LYMPHOCYTES 23.2 % (15-50); MCH 28.4 pg (26.0-34.0); MCHC 32.2 g/dL (31.0-37.0); MCV 88.1 fL (80.0-100.0); MEAN PLATELET VOLUME 9.6 fL (7.4-10.4); MONOCYTES 5.2 % (2-11); NEUTROPHILS 67.1 % (40-80); PLATELET COUNT 268 10x3/uL (130-400); RBC 4.72 10x6/uL (4.00-5.40); RDW 14.3 % (11.5-14.5); WBC 9.5 10x3/uL (4.8-10.8)
--- NOTE | 2020-04-10 11:23 | NUR ---
PT ARRIVED BY STRETCHER. PLACED ON MONITORS. ASSESSMENT COMPLETED. VSS AT THIS TIME. FAMILY AT BEDSIDE. DR. MCCABE ROUNDED AND SPOKE WITH PT'S FAMILY.
[2020-04-10] MEDS ORDERED: PLAVIX75 MG (11:29)
[2020-04-10] MEDS ORDERED: PLAVIX75 MG PO (11:29)
--- NOTE | 2020-04-10 11:38 | NUR ---
RIGHT GROIN DRESSING C/D/I. NO S/S OF HEMATOMA NOTED. CALL LIGHT WITHIN REACH. VSS AT THIS TIME. FAMILY AT BEDSIDE. PT RESTING COMFORTABLY.
--- NOTE | 2020-04-10 12:08 | NUR ---
RIGHT GROIN DRESSING C/D/I. NO S/S OF HEMATOMA NOTED. CALL LIGHT WITHIN REACH. VSS AT THIS TIME. FAMILY AT BEDSIDE. PT TOLERATING SIPS OF TEA. DENIES NAUSEA AT THIS TIME. C/O SOME CHRONIC BACK PAIN. SHE BROUGHT HER TRAMADOL FROM HOME AND TOOK 1 PILL AT THIS TIME.
--- NOTE | 2020-04-10 12:38 | NUR ---
RIGHT GROIN DRESSING C/D/I. NO S/S OF HEMATOMA NOTED. CALL LIGHT WITHIN REACH. VSS AT THIS TIME. PT REPORTS BACK PAIN HAS IMPROVED AND RATES IT A 4/10 AT THIS TIME.
--- NOTE | 2020-04-10 13:00 | NUR ---
RIGHT GROIN DRESSING C/D/I. NO S/S OF HEMATOMA NOTED. CALL LIGHT WITHIN REACH. VSS AT THIS TIME.
--- NOTE | 2020-04-10 13:30 | NUR ---
RIGHT GROIN DRESSING C/D/I. NO S/S OF HEMATOMA NOTED. CALL LIGHT WITHIN REACH. VSS AT THIS TIME.
--- NOTE | 2020-04-10 14:15 | NUR ---
RIGHT GROIN DRESSING C/D/I. NO S/S OF HEMATOMA NOTED. CALL LIGHT WITHIN REACH. VSS AT THIS TIME. HEAD OF BED INC TO 30 DEGREES. TOLERATED WELL. SET UP WITH SANDWICH TRAY AND DRINK. DENIES NAUSEA/PAIN AT THIS TIME.
--- NOTE | 2020-04-10 14:50 | NUR ---
RIGHT GROIN DRESSING C/D/I. NO S/S OF HEMATOMA NOTED. CALL LIGHT WITHIN REACH. VSS AT THIS TIME. PIV D/C'D WITH CATH TIP INTACT. TOLERATED WELL. PT INSTRUCTED TO GET DRESSED. FAMILY AT BEDSIDE TO ASSIST.
--- NOTE | 2020-04-10 15:00 | NUR ---
PT AMBULATED TO RESTROOM. VOIDED WITHOUT DIFFICULTY. STEADY GAIT NOTED. DISCUSSED DISCHARGE INSTRUCTIONS WITH PT AND PT'S FAMILY. THEY VOICED UNDERSTANDING.
--- NOTE | 2020-04-10 15:10 | NUR ---
PT TAKEN DOWN TO VEHICLE BY WHEELCHAIR. NO S/S OF DISTRESS NOTED. ALL BELONGINGS AND PAPERWORK IN HAND. RIGHT GROIN DRESSING C/D/I. NO S/S OF HEMATOMA NOTED.
--- NOTE | 2020-04-12 08:09 | OP ---
PATIENT NAME: MING KENT MEDICAL RECORD: [id number] :[birth year] LOCATION:D.CAT ADMISSION DATE: SURGEON: JOEL MCCABE MD DATE OF OPERATION: 04/10/2020 PROCEDURE: Left heart catheterization, selective angiography, right femoral artery approach. CATHETERS: A 5-Sami sheath, 5/4 left and right Rj, 5/4 pig. The procedure was well tolerated. The patient returned to [place]. Sheath removed. ExoSeal device was placed. FINDINGS: Left ventriculography in 30-degree COLEMAN view: Normal wall motion and normal systolic function. CORONARY ANATOMY: LEFT MAIN: Left main is free of disease. LAD: Has a questionable ostial napkin-ring stenosis in its proximal portion. This is confirmed with an IFR abnormal at 0.71. The rest of vessel is free of disease. CIRCUMFLEX: Free of disease. RIGHT CORONARY ARTERY: Large, dominant right, free of disease. PLAN: Intervention of the LAD momentarily. DESCRIPTION OF PROCEDURE: A 5-Sami sheath was exchanged for a 6-Sami. JL4 guiding catheter provided fair guide catheter support. We deployed a short 3.0 x 8 Balwinder drug-eluting stent. There was no significant residual. There was no snow plowing to the circumflex. Sheath closed with ExoSeal device. Plavix was loaded in the lab. TRANSINT:[id number] Voice Confirmation ID: [id number] DOCUMENT ID: [id number] JOEL MCCABE MD at 0809 CC: [id number] DICTATION DATE: 04/10/20 1105 FABRIC INSPECTOR: 04/10/20 1653 [facility] 04/10/20 [id number] [place] [address]
== END 2020-04-10 15:20 | disposition home or self-care (01) ==
LOC: D.CATH 07:51
PROVIDERS: ATTEND Internal Medicine Interventional Cardiology
DX: I25.119 Atherosclerotic heart disease of native coronary artery with unspecified angina pectoris (principal); R06.00 Dyspnea, unspecified; R01.1 Cardiac murmur, unspecified

== ENCOUNTER → 2020-11-13 13:31 | Outpatient (CLI) | payer OTHER, MEDICAID ==
[2020-04-10 09:09] VITALS: BMI 56.6
[~2020-11-13 13:31] MED LIST changes: +BAYER CHEWABLE81 MG PO; +BUSPAR 15 MG TA15 MG PO; +CATAPRES0.1 MG PO; +FLUTICASONE PRO16 GM NASAL; +LASIX20 MG PO; +LIPITOR20 MG PO; +NITROSTAT0.4 MG SL; +PLAVIX75 MG; +SINGULAIR10 MG PO; +TOPAMAX50 MG PO; +ZESTRIL10 MG PO
[2020-11-13 14:16] LABS: SARS-CoV-2 ANTIGEN NEGATIVE- SARS-COV-2 (NEGATIVE)
== END | disposition home or self-care (01) ==
LOC: D.LAB 13:31
PROVIDERS: ATTEND Internal Medicine Pulmonary Disease
DX: Z11.52 Encounter for screening for COVID-19 (principal)

== ENCOUNTER → 2020-11-18 09:40 | Outpatient (CLI) | payer OTHER, MEDICAID | END | disposition home or self-care (01) | LOC: D.RT 09:40 | DX: R06.09 Other forms of dyspnea (principal) ==